=== PATIENT | female | born 1940 | race Caucasian/White ===

== ENCOUNTER 2017-07-28 09:59 | Day surgery (SDC) | payer MEDICARE, OTHER ==
[~2017-07-28 09:59] MED LIST: Buffered Lidocaine 0.9% SYRIN* 5 ML/SYR SYRINGE INTRADERM ONE; DiMENhydriNATE IV* 50 MG/ML VIAL IV PUSH PRN; Famotidine IV* 10 MG/ML 2 ML (20 mg) IV ONE; Morphine INJ* 2 MG/ML 1 ML CARPUJECT IV PRN; Naloxone* 0.4 MG/ML 1 ML VIAL IV PRN; Ondansetron INJ* 2 MG/ML VIAL ONE; PROCHLORPERAZINE INJ 5 MG/ML 2 ML VIAL IV PRN; Scopolamine 1.5 mg* PATCH TRANSDERM PRN; fentaNYL* 50 MCG/ML 2 ML VIAL (100 MCG VIAL) IV PRN; oxyCODONE/Acetamin 5/325 MG* TAB PO PRN
[2017-07-28] MEDS ORDERED: Famotidine IV* 10 MG/ML 2 ML (20 mg) ONE (10:22)
[2017-07-28] MEDS ORDERED: Ondansetron ODT TAB* 4 MG ONE (10:22)
[2017-07-28] MEDS ORDERED: ceFAZolin 2 GM PREMIX (*) 2 GM/50 ML BAG IVPB ONE (10:22)
[2017-07-28] MEDS ORDERED: Dexamethasone TAB* 4 MG ONE (10:22)
[2017-07-28] MEDS ORDERED: fentaNYL* 50 MCG/ML 2 ML VIAL (100 MCG VIAL) ONE (10:48)
[2017-07-28] MEDS ORDERED: Midazolam* 1 MG/ML 5 ML VIAL (5 MG) ONE (10:49)
[2017-07-28] MEDS: Dexamethasone TAB* 4 MG PO ONE ×2 (11:03→11:15)
[2017-07-28] MEDS ORDERED: KETAMINE HCL* 50 MG/ML 10 ML VIAL ONE (11:58)
[2017-07-28] MEDS ORDERED: Lidocaine 2% PF * 5 ML VIAL ONE (12:28)
[2017-07-28] MEDS ORDERED: Metoprolol Tartrate IV* 1 MG/ML 5 ML VIAL ONE (12:28)
[2017-07-28] MEDS ORDERED: Flumazenil* 0.1 MG/ML 5 ML MDV ONE (12:28)
[2017-07-28] MEDS ORDERED: Propofol* 500 MG/50 ML BTL ONE (12:28)
--- NOTE | 2017-07-28 13:26 | OP ---
Operative Report - Blank - Operative Report Date of Operation: 07/28/17 Note: PATIENT: Pao Pagan DATE OF : 1940 DATE OF SURGERY: 07/28/2017 SURGEON: Tamir Gonsalez MD TOLL COLLECTOR: JUDAH Mejía, whos assistance was necessary for positioning, retraction, help with instrumentation, and closure. ANESTHESIOLOGIST: Dr. 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 Third and fourth claw toes. 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 Third and fourth claw toes. OPERATION: Right first toe amputation at the level of the IP joint. Right second toe amputation at the level of the PIP joint. Percutaneous flexor tenotomy of the right third and fourth toes. ANESTHESIA: MAC IMPLANTS: none TOURNIQUET TIME: Less than 30 minutes with an ankle Esmarch tourniquet. SPECIMENS: Toes to pathology ESTIMATED BLOOD LOSS: minimal COMPLICATIONS: none STATUS: Stable from the operating room to the recovery room. 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 Both operative and non operative treatment alternatives were reviewed. Further, the nature and risks of surgery were reviewed in careful detail. Our discussions regarding the risks of surgery included, but were not limited to, wound infection, wound problems, nerve injury , neuroma, RSD, persistent symptoms, blood clot, failure of the surgery, need for further amputation, and even the remote chance of catastrophic complication , including loss of limb. DESCRIPTION OF PROCEDURE: The patient was seen in the preoperative holding unit and informed written consent was obtained. The appropriate extremity was marked. The patient was then brought to the operating room and carefully positioned on the operating room table. Anesthesia was induced. All bony prominences were padded with great care. A chlorhexidine based pre-scrub was performed followed by a chloraprep prep and drape in standard sterile fashion. A surgical safety pause was then conducted in which we confirmed the appropriate patient, extremity, planned procedure, availability of equipment, indication and administration of antibiotics, and DVT prophylaxis in the form of a compression boot on the non- surgical extremity. I began with application of an ankle Esmarch tourniquet. I then made an incision to remove the distal aspect of the first toe, including the ulcer. I maintained as much healthy soft-tissue length as was possible. The phalanges were dissected out and the toe was amputated at the level of the IP joint. The toe was then sent to pathology. I then made an incision to remove the distal aspect of the second toe, including the ulcer. I maintained as much healthy soft -tissue length as was possible. The phalanges were dissected out and the toe was amputated at the level of the PIP joint. The toe was then sent to pathology. The remaining soft tissues were healthy appearing in the toes. I then performed percutaneous flexor tenotomies of the third and fourth toes with a 15 blade scalpel. This provided improved extension of the toes. We then irrigated copiously after removing the ankle Esmarch tourniquet. The skin edges were pink and hemostasis was obtained. We closed with 3-0 monocryl and then 3-0 prolene and then placed a sterile dressing. The patient was then awakened from anesthesia and transferred to the recovery room in stable condition. There were no complications. All needle and sponge counts were correct at the end of the case. ATTESTATION: I attest I was present and scrubbed and performed the critical portions of the procedure myself. POSTOPERATIVE PLAN: The patient may be heel weight-bearing in a post-operative shoe and will follow up will be in 1 week for a wound check, but we will likely leave the sutures in for 2-3 weeks.
[2017-07-28 14:00] VITALS: BP 152/72
[2017-07-31] MEDS ORDERED: Scopolamine PATCH Remove* 1 NOTE MISC PATCH OFF ONE (05:51)
== END 2017-07-28 14:17 | disposition home or self-care (01) ==
LOC: OR 09:59
PROVIDERS: ATTEND Orthopaedic Surgery
DX: M21.531 Acquired clawfoot, right foot (principal); L97.512 Non-pressure chronic ulcer of other part of right foot with fat layer exposed; G60.3 Idiopathic progressive neuropathy; Z85.3 Personal history of malignant neoplasm of breast; I10 Essential (primary) hypertension; M06.9 Rheumatoid arthritis, unspecified
CPT/HCPCS: 88305; 88311; A9270-GY; J0690; J2250; J2704; J3010; J3490; J8540

== ENCOUNTER 2018-01-03 08:54 | Day surgery (SDC) | payer MEDICARE, OTHER ==
--- NOTE | 2018-01-03 04:23 | HP ---
HISTORY AND PHYSICAL/CONSULTATION: DATE OF ADMISSION/SURGERY: 01/03/18 [facility] HISTORY: Pao Pagan is a 77-year-old woman scheduled for cataract extraction. PAST MEDICAL HISTORY: Medical problems are as follows: 1. Rheumatoid arthritis. 2. Osteoarthritis. 3. Type 2 diabetes mellitus. 4. History of glaucoma. 5. History of restless leg syndrome. 6. Hypertension. 7. History of breast cancer. PAST SURGICAL HISTORY: Includes: 1. Bilateral knee replacements. 2. Hernia repair. 3. Status post amputation of right first toe at the level of the IP joint, right second toe amputation at the level of the pip joint, percutaneous flexor tenotomy of the right third and fourth toes. 4. Breast lumpectomy x2. CURRENT MEDICATIONS: 1. Acetaminophen 500 mg 2 q.6h. p.r.n. pain. 2. Amoxicillin 500 mg 4 tablets as needed 1 hour prior to dental procedures. 3. Aspirin 81 mg daily. 4. Atenolol 25 mg daily. 5. Chlorhexidine mouthwash as directed. 6. Desloratadine 5 mg 1 tablet daily. 7. Ferrous sulfate 325 mg 2 tablets every day. 8. Fluticasone 50 mcg 2 squirts each nostril daily. 9. Folic acid 1 mg every day. 10. Liquid vitamin E p.r.n. for mouth sores. 11. Methotrexate 2.5 mg 8 tablets weekly. 12. Mirapex 0.125 mg 3 tablets every day. 13. Naproxen 220 mg 2 tablets every day. 14. Ocuvite every day. 15. Tramadol 50 mg 1 to 2 tablets as needed for pain. 16. Travatan Z 0.004% eye drops 1 drop in each eye before bed. 17. Vitamin B12 1000 mcg daily. 18. Vitamin D3 2000 units daily. ALLERGIES: TEGADERM caused blistering. HABITS: Tobacco: None. Caffeine: One cup of coffee and ice tea and coffee in the summer. EtOH: Occasional wine. Tobacco: None. FAMILY HISTORY: Noncontributory. SOCIAL AND PERSONAL HISTORY: The patient is . She lives independently at [facility]. REVIEW OF SYSTEMS: Generally, she has had some fatigue, but it is improving. Her weight is stable. She denied fevers, chills, or sweats. She sleeps okay except when stressed. She takes occasional zolpidem. Skin: She bruises easily. HEENT: See above. Endocrine: Negative. Heme: Negative. Breasts: Right side is bigger. She is up-to-date on her mammograms. Respiratory: She feels slightly stuffy, wonders if she has allergies. Cardiovascular: History of hypertension. GI: Negative. : Negative. SHIP RIGGER APPRENTICE: Negative. Musculoskeletal: See above. Neuro: Negative. Psych: Negative. PHYSICAL EXAMINATION GENERAL: She is a well-developed obese white female, in no acute distress. SKIN: Shows onychomycosis of toenails. HEENT: Atraumatic, normocephalic. Full EOMs. TMs, right cerumen, left normal. Mouth: Pharynx unremarkable. NECK: Without thyromegaly or bruits. NODES: Without adenopathy. BREASTS: Without masses. CHEST: Clear. HEART: Normal S1, S2. No murmurs, gallops, or rubs. ABDOMEN: Soft, obese, and nontender. There are no masses or organomegaly. Bowel sounds are active. EXTREMITIES: Showed 1+ ankle edema status post distal toe amputation on the right first and second toes. NEUROLOGIC: 1+ knee and ankle jerks. She has diminished monofilament sensation in the feet bilaterally. . IMPRESSION: Medical problems as noted above. There are no contraindications to surgery as planned. I will be available in the perioperative period should any questions or problems arise. [id number]/CPS #: [id number] MTDD
[~2018-01-03 08:54] MED LIST changes: +Acetaminophen TAB* 325 MG PO PRN; -DiMENhydriNATE IV* 50 MG/ML VIAL IV PUSH PRN; -Famotidine IV* 10 MG/ML 2 ML (20 mg) IV ONE; -Morphine INJ* 2 MG/ML 1 ML CARPUJECT IV PRN; -Naloxone* 0.4 MG/ML 1 ML VIAL IV PRN; -Ondansetron INJ* 2 MG/ML VIAL ONE; -PROCHLORPERAZINE INJ 5 MG/ML 2 ML VIAL IV PRN; -Scopolamine 1.5 mg* PATCH TRANSDERM PRN; -fentaNYL* 50 MCG/ML 2 ML VIAL (100 MCG VIAL) IV PRN; -oxyCODONE/Acetamin 5/325 MG* TAB PO PRN
[2018-01-03] MEDS ORDERED: Midazolam* 1 MG/ML 2 ML VIAL (2 MG) ONE (10:47)
[2018-01-03 11:47] VITALS: BP 142/73
[2018-01-03] MEDS ORDERED: Ketorolac 0.5% OPHTH (NF) 0.5 % 5 ML BTL ONE (13:51)
[2018-01-03] MEDS ORDERED: Neomycin/Polymy/Dex OPHTH.OIN* 3.5 GM ONE (13:51)
[2018-01-03] MEDS ORDERED: Lidocaine 1%* 5 ML VIAL ONE (13:51)
[2018-01-03] MEDS ORDERED: Tetracaine 0.5% OPTH.SOL 4 ML* 1 DROP BTL ONE (13:51)
[2018-01-03] MEDS ORDERED: Cyclopentolate 1% OPTH.SOL* 2 ML BTL ONE (13:51)
[2018-01-03] MEDS ORDERED: Tropicamide 1% OPTH.SOL* BTL ONE (13:51)
[2018-01-03] MEDS ORDERED: Phenylephrine 2.5% OPTH.SOL* 2 ML BTL ONE (13:51)
--- NOTE | 2018-01-04 04:19 | OP ---
DATE OF OPERATION: 01/03/18 - [facility] DATE OF : 44 SURGEON: Paulie Harmon MD HALL SUPERVISOR: None. ANESTHESIA: Topical with intravenous sedation. PRE-OP DIAGNOSIS: Cataract with glaucoma, left eye. POST-OP DIAGNOSIS: Cataract with glaucoma, left eye. OPERATIVE PROCEDURE: Cataract extraction with posterior chamber intraocular lens implant and iStent inject implant, left eye. COMPLICATIONS: None. BLOOD LOSS: None. DESCRIPTION OF PROCEDURE: The patient was brought to the operating room and intravenous sedation. A drop of tetracaine was placed in her left eye. The patient was prepped and draped in the usual sterile fashion for ophthalmic surgery and attention was directed to the left eye where a speculum was placed. A paracentesis was created at the 5 o'clock position and 0.1 cc of 1% preservative-free lidocaine was injected into the anterior chamber followed by DisCoVisc. The eye was digitally stabilized while a 2.75-mm keratome was used to create a triplanar clear corneal incision at the 3 o'clock position. A continuous curvilinear capsulorrhexis was created using a cystotome and Utrata forceps. BSS on a cannula was used to hydrodissect the lens from the capsule. Phacoemulsification was performed in a [id number] technique to create 4 fragments, which were removed. Residual cortical material was removed with irrigation and aspiration. DisCoVisc was used to inflate the capsular bag. An [id number] 19.0 diopter lens was inserted into the capsular bag. Supplemental DisCoVisc was used to deepen the anterior chamber and coat the surface of the cornea. The patient's head was rotated away from the surgeon and the microscope was rotated toward the surgeon. A gonioprism was placed in the surface of the eye. An iStent inject commercial lines account manager was placed into the anterior chamber. Under direct visualization, two iStent inject stents were placed at the 8 o'clock and 10 o'clock positions in the trabecular mesh-work. The commercial lines account manager and the prism were removed. The patient's head and microscope were returned to a neutral position. Residual viscoelastic was removed from the eye. BSS on the cannula was used to hydrate the corneal stoma and seal the wound. At the end of the case, the pupil was round and the lens was centered. The iStent injects were in good position. The eye pressure appeared normal and the wound was water tight. The speculum was removed and topical Maxitrol ointment was placed on the surface of the eye. The eye was closed, patched, and shielded and the patient was sent to the recovery room in stable condition with postoperative instructions and followup appointment given. [id number]/CPS #: [id number] MTDD
== END 2018-01-03 12:03 | disposition home or self-care (01) ==
LOC: OREAST 08:54
PROVIDERS: ATTEND Ophthalmology
DX: H25.12 Age-related nuclear cataract, left eye (principal); H40.10X1 Unspecified open-angle glaucoma, mild stage; E11.9 Type 2 diabetes mellitus without complications; Z79.84 Long term (current) use of oral hypoglycemic drugs; M05.59 Rheumatoid polyneuropathy with rheumatoid arthritis of multiple sites; I10 Essential (primary) hypertension; D50.9 Iron deficiency anemia, unspecified
CPT/HCPCS: A9270-GY; C1783; J2250; V2632

== ENCOUNTER 2018-07-11 09:04 | Emergency (ER) | payer MEDICARE, OTHER ==
[2018-07-11 10:16] VITALS: BP 142/84
--- NOTE | 2018-07-11 10:44 | UC ---
General HPI - HPI Summary HPI Summary: Patient has had sinus congestion and fullness for more than a month. States she was given amoxicillin 3x/day for 5 days - finished course yesterday. No improvement and actually feels worse. Has some redness over cheeks. No fever. Saw nuclear licensing engineer at start of symptoms and was started on several meds that made her worse and Amol CALLOWAY stopped them on. Is taking allergy and nasal sprays. Tolerating PO. No N/V/D. Getting around ok. Meds: REviewed No cough or SOB - History of Current Complaint Chief Complaint: UCGeneralIllness Stated Complaint: SINUS ISSUE Time Seen by Provider: 07/11/18 10:22 Pain Intensity: 1 - Allergy/Home Medications Allergies/Adverse Reactions: Allergies Allergy/AdvReac Type Severity Reaction Status Date / Time Adhesive Tape Allergy BLISTERING Verified 07/11/18 09:32 [Tegaderm Dressing] Home Medications: Home Medications Azelastine 0.15% NASAL(NF) [Astepro 0.15% NASAL (NF)] 2 spray NASAL BID [History Confirmed 07/11/18] Bimatoprost 0.01% OPHTH (NF) [Lumigan 0.01% OPHTH (NF)] 1 drop RIGHT EYE QPM [History Confirmed 07/11/18] LevoCETirizine TAB (NF) [Xyzal TAB (NF)] 5 mg PO DAILY 07/11/18 [History Confirmed 07/11/18] PMH/Surg Hx/FS Hx/Imm Hx Previously Healthy: Yes - Surgical History Surgical History: Yes Surgery Procedure, Year, and Place: LEFT KNEE [id number]-25/2012-[facility]. RIGHT KNEE REPLACEMENT- [facility]-02/2012-[facility]. LUMPECTOMY- LEFT AND RIGHT-[facility]- 2000 - Lt MALIGNANT, Rt ATYPICAL APLASIA. R Foot Surgery-07/2017 [facility] Toe amputations and plantar fasciitis surgery. [place] [facility] [place] - Social History Alcohol Use: None Substance Use Type: None Smoking Status (MU): Never Smoked Tobacco Have You Smoked in the Last Year: No Review of Systems All Other Systems Reviewed And Are Negative: Yes ENT: Positive: Sinus Congestion Physical Exam Triage Information Reviewed: Yes Appearance: Well-Appearing Vital Signs: Initial Vital Signs Temp 98.6 F 07/11/18 09:36 Pulse 65 07/11/18 09:36 Resp 18 07/11/18 09:36 BP 142/84 07/11/18 09:36 Pulse Ox 98 07/11/18 09:36 Vital Signs Reviewed: Yes ENT: Positive: Pharyngeal erythema, Nasal congestion, TMs normal Neck: Positive: Supple, Nontender Respiratory: Positive: Lungs clear, Normal breath sounds Cardiovascular: Positive: RRR, No Murmur Course/Dx - Course Course Of Treatment: This is a 78 yr old with more than a month of sinus congestion Asessment Nontoxic appearing Plan Start Augmentin as prescribed Can start Flonase in addition to other nasal sprays to help with sinus congestion Continue remaining medications as prescribed. If symptoms continue or worsen, recommend follow up with your PCP or return to urgent care - Diagnoses Provider Diagnosis: Acute bacterial sinusitis Discharge - Sign-Out/Discharge Documenting (check all that apply): Patient Departure All imaging exams completed and their final reports reviewed: No Studies - Discharge Plan Condition: Good Disposition: HOME Prescriptions: Amoxicillin/Clavulanate TAB* [Augmentin TAB 875*] 875 mg PO BID #20 tab Fluticasone NASAL SPRAY 50MCG* [Flonase NASAL SPRAY 50MCG*] 2 spray BOTH NARES DAILY #1 btl Patient Education Materials: Sinusitis (ED) Referrals: Kaitlyn Yu MD [Primary Care Provider] - Additional Instructions: Start Augmentin as prescribed Can start Flonase in addition to other nasal sprays to help with sinus congestion Continue remaining medications as prescribed. If symptoms continue or worsen, recommend follow up with your PCP or return to urgent care - Billing Disposition and Condition Condition: GOOD Disposition: Home
== END 2018-07-11 10:47 | disposition home or self-care (01) ==
LOC: UCEAST 09:04
DX: J01.90 Acute sinusitis, unspecified (principal); B96.89 Other specified bacterial agents as the cause of diseases classified elsewhere; Z91.09 Other allergy status, other than to drugs and biological substances
CPT/HCPCS: 99212; G0463

== ENCOUNTER → 2018-09-06 07:03 | Day surgery (SDC) | payer MEDICARE, OTHER ==
[~2018-09-06 07:03] MED LIST changes: -Acetaminophen TAB* 325 MG PO PRN; -Buffered Lidocaine 0.9% SYRIN* 5 ML/SYR SYRINGE INTRADERM ONE; +Buffered Lidocaine 1% SYRIN* 1 ML/SYRINGE INTRADERM ONE; +Dexamethasone TAB* 4 MG ONE; +DiMENhydriNATE IV* 50 MG/ML VIAL IV PUSH PRN; +Famotidine IV* 10 MG/ML 2 ML (20 mg) IV ONE; +Famotidine IV* 10 MG/ML 2 ML (20 mg) ONE; +KETAMINE HCL* 50 MG/ML 10 ML VIAL ONE; +Lactated Ringers 1000 ML Bag* 1,000 ML IV SCH; +Lidocaine 1% INJ* 10 MG/ML 30 ML SDV ONE; +Lidocaine 2% PF * 5 ML VIAL ONE; +Midazolam* 1 MG/ML 5 ML VIAL (5 MG) ONE; +Naloxone* 0.4 MG/ML 1 ML VIAL IV PRN; +Ondansetron ODT TAB* 4 MG ONE; +Ondansetron ODT TAB* 4 MG PO ONE; +PROCHLORPERAZINE INJ 5 MG/ML 2 ML VIAL IV PRN; +Propofol* 500 MG/50 ML BTL ONE; +ceFAZolin 2 GM in NS PREMIX(*) 2 GM/100 ML BAG IVPB ONE; +fentaNYL* 50 MCG/ML 2 ML VIAL (100 MCG VIAL) IV PRN; +fentaNYL* 50 MCG/ML 2 ML VIAL (100 MCG VIAL) ONE; +hydrALAZINE IV* 20 MG/ML VIAL ONE; +oxyCODONE/Acetamin 5/325 MG* TAB PO PRN
[2018-09-06] MEDS: Dexamethasone TAB* 4 MG PO ONE ×2 (08:05→08:34)
[2018-09-06 09:49] VITALS: BP 170/82
--- NOTE | 2018-09-06 13:30 | OP ---
CC: Kaitlyn Yu MD; [facility] OPERATIVE REPORT: DATE OF OPERATION: 09/06/18 DATE OF : 44 SURGEON: Renny Jacob MD. MAINTENANCE WORKER HOUSE TRAILER: None. ANESTHESIOLOGIST: Dr. King. ANESTHESIA: Local MAC. PRE-OP DIAGNOSIS: Diffuse large B-cell lymphoma. POST-OP DIAGNOSIS: Diffuse large B-cell lymphoma. OPERATIVE PROCEDURE: PowerPort placement, left subclavian. ESTIMATED BLOOD LOSS: Minimal. IV FLUIDS: Crystalloid. SPECIMENS: None. DRAINS: None. COMPLICATIONS: None. COUNTS: Instrument, needle and sponge counts were correct. DESCRIPTION OF PROCEDURE: The patient was brought to the operating room and placed on the table supi ne. Sequential compression devices were placed on both lower extremities. Intravenous sedation was administered. Left neck and chest were prepped and draped in the usual sterile fashion and a time-ou t was performed. Local anesthetic was infiltrated for a left subclavian approach. Left subclavian vein was cannulated after several attempts. A guidewire was placed and its position in the superior vena cava confirmed under fluoroscopy. Additional anesthetic was infiltrated into the upper left chest to create the po cket. A transverse incision was created and the subcutaneous tissues were divided with cautery. The 8-Malaysian PowerPort catheter was back tunneled from the guidewire insertion site to the pocket. The peel-away sheath and dilator were then advanced into the superior vena cava under fluoroscopic guidan ce. The guidewire and dilator were removed, and the catheter was advanced into the atriocaval juncti on under fluoroscopic guidance. The catheter was cut to 25 cm and connected to the PowerPort, which was placed into the pocket. It was secured with a single 2-0 Prolene suture. The port was drawn and flushed easily. It was flushed with heparinized saline. The pocket was closed in 2 layers with 3-0 Vicryl for the subcutaneous tissue, 4-0 Monocryl for the skin. The counter incision was closed with 4-0 Monocryl. DermaFlex was applied over the wounds. The patient tolerated the procedure well, was awakened and transferred to Recovery stable. [id number]/[facility] #: [id number]
== END | disposition home or self-care (01) ==
LOC: OR 07:03
PROVIDERS: ATTEND Surgery
DX: C83.30 Diffuse large B-cell lymphoma, unspecified site (principal); H81.10 Benign paroxysmal vertigo, unspecified ear; I10 Essential (primary) hypertension; D64.9 Anemia, unspecified; M54.9 Dorsalgia, unspecified; D15.1 Benign neoplasm of heart; Q40.1 Congenital hiatus hernia
CPT/HCPCS: 71045; 76000; A9270-GY; C1788; J0360; J0690; J1642; J2250; J2704; J3010; J8540